=== PATIENT | female | born 2000 | race African-American/Black ===

== ENCOUNTER 2022-05-24 15:45 | Outpatient (CLI) | payer BC, MEDICAID, SELFPAY ==
--- NOTE | ~2022-05-24 | MR_ITS ---
EXAMINATION: MR brain/brain stem wo/w con DATE: 05/24/2022 16:44 INDICATION: Central scotoma. Headache. TECHNIQUE: Magnetic resonance imaging (MRI) of the brain and brainstem was performed without and with 14 mL MultiHance intravenous contrast. COMPARISON: None. FINDINGS: There is no intracranial hemorrhage, acute infarction, or abnormal intracranial mass lesion . The ventricles are normal in size. There is mucosal thickening in the paranasal sinuses. The orbits are normal. The mastoid air cells are normal. IMPRESSION: 1. Normal brain. Reviewed, dictated and finalized at location A. IMPRESSION: 1. Normal brain.
--- NOTE | ~2022-05-24 | MR_ITS ---
EXAMINATION: MR orbits face neck wo/w con DATE: 05/24/2022 16:44 INDICATION: Central scotoma. Headache. TECHNIQUE: Magnetic resonance imaging (MRI) of the orbits was performed without and with 14 mL MultiH ance intravenous contrast. COMPARISON: None. FINDINGS: The extraocular muscles, optic nerves, optic chiasm, and ocular globes are normal. There is mucosal thickening in the paranasal sinuses. IMPRESSION: 1. Normal orbits. Reviewed, dictated and finalized at location A. IMPRESSION: 1. Normal orbits.
== END 2022-05-24 15:46 | disposition home or self-care (01) ==
PROVIDERS: PCP Family Medicine
DX: H53.419 Scotoma involving central area, unspecified eye (principal)
CPT/HCPCS: 70543; 70553; A9577